=== PATIENT | female | born 1975 | race Caucasian/White ===

== ENCOUNTER → 2016-12-15 | Outpatient (CLI) | payer BC ==
[~2016-12-15] MED LIST: LOTRISONE CREAM15 GM TP; PRENATAL1 TA1 PO
== END ==
LOC: MC.RAD 11:12
DX: Z12.31 Encounter for screening mammogram for malignant neoplasm of breast (principal); R92.8 Other abnormal and inconclusive findings on diagnostic imaging of breast

== ENCOUNTER → 2016-12-17 | Outpatient (CLI) | payer BC | LOC: MC.RAD 13:58 | DX: R92.8 Other abnormal and inconclusive findings on diagnostic imaging of breast (principal); D24.1 Benign neoplasm of right breast ==

== ENCOUNTER → 2020-04-30 | Outpatient (CLI) | payer BC | LOC: MC.RAD 08:40 | DX: Z12.31 Encounter for screening mammogram for malignant neoplasm of breast (principal) ==

== ENCOUNTER → 2021-09-26 | Outpatient (CLI) | payer BC | LOC: MC.RAD 11:00 | DX: N64.89 Other specified disorders of breast (principal) ==